=== PATIENT | male | born 1945 | race Caucasian/White ===

== ENCOUNTER 2019-07-17 15:01 | Emergency (ER) | payer OTHER ==
[~2019-07-17] VITALS: Ht 177.8 cm; Wt 110.2 kg
[~2019-07-17 15:01] MED LIST: ALBU90OI INH; ASPI81CH PO; ASPI81EC; ATEN50; ATEN50 PO; ATOR10; Artificial Tea1 EACH BOTHEYES; Atrovent Inha12.9 GM INH; DOXA2; ETOD400 PO; FINA5 PO; METF500C PO; NITR.6SL SL; PREG150 PO; Prednisone50 MG PO; ROFE12.5; ROPI1 PO; SIMV20; SIMV80 PO; SPIHYD PO; TAMS.4ER; TERA5 PO; TRAM50 PO; Triamcinolone A15 G4 TOP; VIOXX; Zithromax250 MG PO
[2019-07-17] MEDS ORDERED: ATOR40TA PO (16:12)
[2019-07-17] MEDS ORDERED: ATEN50 PO (16:12)
[2019-07-17] MEDS ORDERED: Isosorbide Mono30 MG PO (16:13)
[2019-07-17] MEDS ORDERED: Dyazide 37.5-21 EACH PO (16:13)
[2019-07-17] MEDS ORDERED: METF500 PO (16:14)
[2019-07-17] MEDS ORDERED: Omeprazole20 M1 PO (16:16)
[2019-07-17] MEDS ORDERED: TRAM50 PO (16:17)
[2019-07-17] MEDS ORDERED: Diclofenac Sodi50 MG PO (16:17)
[2019-07-17] MEDS ORDERED: TAMS.4ER PO (16:18)
[2019-07-17] MEDS ORDERED: Avodart0.5 MG PO (16:18)
[2019-07-17] MEDS ORDERED: Percocet 7.5-31 EACH PO (17:29)
[2019-07-17] MEDS ORDERED: Keflex500 MG PO (17:29)
== END 2019-07-17 17:57 | disposition home or self-care (01) ==
LOC: ER 15:01
DX: S62.310B Displaced fracture of base of second metacarpal bone, right hand, initial encounter for open fracture (principal); S62.241B Displaced fracture of shaft of first metacarpal bone, right hand, initial encounter for open fracture; S66.221A Laceration of extensor muscle, fascia and tendon of right thumb at wrist and hand level, initial encounter; I25.2 Old myocardial infarction; I10 Essential (primary) hypertension; E11.40 Type 2 diabetes mellitus with diabetic neuropathy, unspecified; M24.541 Contracture, right hand; F17.200 Nicotine dependence, unspecified, uncomplicated; Z95.5 Presence of coronary angioplasty implant and graft; Z88.8 Allergy status to other drugs, medicaments and biological substances; Z88.6 Allergy status to analgesic agent; Z88.5 Allergy status to narcotic agent; Z79.899 Other long term (current) drug therapy; Z79.84 Long term (current) use of oral hypoglycemic drugs; W31.2XXA Contact with powered woodworking and forming machines, initial encounter
CPT/HCPCS: 12034; 71046; 73120; 90471; 90714; 96365-59; 96375-59; 99283-25; J0690; J1170; J2405

== ENCOUNTER 2021-06-23 12:42 | Emergency (ER) | payer OTHER ==
[~2021-06-23] VITALS: Ht 175.3 cm; Wt 99.8 kg
[~2021-06-23 12:42] MED LIST changes: +ATOR40TA PO; +Avodart0.5 MG PO; +Diclofenac Sodi50 MG PO; +Dyazide 37.5-21 EACH PO; +Isosorbide Mono30 MG PO; +Keflex500 MG PO; +METF500 PO; +Omeprazole20 M1 PO; +Percocet 7.5-31 EACH PO; +TAMS.4ER PO
[2021-06-23 14:16] LABS: BASOPHILS ABSOLUTE AUTO 0.07 K/mm3 (0.00-0.23); BASOPHILS PERCENT AUTO 1 % (0-2); EOSINOPHILS PERCENT AUTO 1 % (0-6); Hematocrit 41.2 % (37.0-53.0); Hemoglobin 14.5 g/dL (13.5-17.5); IMMATURE GRAN ABSOLUTE AUTO 0.03 K/mm3 (0.00-0.10); IMMATURE GRAN PERCENT AUTO 0 % (0-1); LYMPHOCYTES PERCENT AUTO 29 % (21-46); MONOCYTES ABSOLUTE AUTO 0.79 K/mm3 (0.16-1.47); MONOCYTES PERCENT AUTO 8 % (4-13); Mean Corpuscular HGB 33.6 pg (26.0-34.0); Mean Corpuscular HGB Conc 35.2 g/dL (31.5-36.5); Mean Corpuscular Volume 96 fL (80-100); Mean Platelet Volume 9.9 fL (9.1-12.4); NEUTROPHILS ABSOLUTE AUTO 6.26 K/mm3 (1.96-9.15); NEUTROPHILS PERCENT AUTO 62 % (41-73); Platelet Count 268 K/mm3 (150-400); RDW Coefficient Variation 13.4 % (11.7-14.2); RDW Standard Deviation 47.8 fL (35.1-46.3); Red Blood Cell Count 4.31 M/mm3 (4.30-5.90); White Blood Cell Count 10.15 K/mm3 (4.00-11.30)
[2021-06-23 14:40] LABS: Alanine Aminotransfer (ALT/SGP 26 U/L (12-78); Albumin, Blood 3.5 g/dL (3.4-5.0); Alk Phos 102 U/L (50-136); Anion Gap 5 mmol/L (6-16); Aspartate Aminotrans (AST/SGOT 16 U/L (12-37); Bilirubin, Total 0.5 mg/dL (0.1-1.0); Blood Urea Nitrogen 21 mg/dL (8-24); Bun/Creatinine Ratio 17.4 (12.0-20.0); CO2, Blood 28 mmol/L (21-32); Calcium, Blood 8.6 mg/dL (8.5-10.1); Chloride, Blood 106 mmol/L (98-108); Creatinine, Blood 1.21 mg/dL (0.60-1.20); Globulin, Blood 3.6 g/dL (2.2-4.0); Glomerular Filtration Rate 58 (60-); Glucose, Blood 127 mg/dL (70-99); Potassium, Blood 4.3 mmol/L (3.5-5.5); Sodium, Blood 139 mmol/L (136-145); Total Protein, Blood 7.1 g/dL (6.4-8.2); Troponin I <0.015 ng/mL (0.000-0.040)
== END 2021-06-23 15:21 | disposition home or self-care (01) ==
LOC: ER 12:42
PROVIDERS: Emergency Medicine
DX: I20.8 Other forms of angina pectoris (principal); F17.200 Nicotine dependence, unspecified, uncomplicated; I10 Essential (primary) hypertension; E11.40 Type 2 diabetes mellitus with diabetic neuropathy, unspecified; Z95.5 Presence of coronary angioplasty implant and graft; Z88.8 Allergy status to other drugs, medicaments and biological substances; Z88.5 Allergy status to narcotic agent; Z79.899 Other long term (current) drug therapy; Z79.84 Long term (current) use of oral hypoglycemic drugs
CPT/HCPCS: 80053; 83880; 84484; 85025; 93005; 93010; 99285-25

== ENCOUNTER 2021-11-09 20:00 | Emergency (ER) | payer OTHER ==
[~2021-11-09] VITALS: Ht 175.3 cm; Wt 103.0 kg
[2021-11-09] MEDS ORDERED: PENVK500 PO (20:19)
[2021-11-09] MEDS ORDERED: Norco 5-325 Ta1 EACH PO (20:19)
== END 2021-11-09 20:42 | disposition home or self-care (01) ==
LOC: ER 20:00
DX: K08.89 Other specified disorders of teeth and supporting structures (principal); Z88.5 Allergy status to narcotic agent; Z88.8 Allergy status to other drugs, medicaments and biological substances; Z79.899 Other long term (current) drug therapy; Z79.84 Long term (current) use of oral hypoglycemic drugs; I25.2 Old myocardial infarction; I10 Essential (primary) hypertension; E11.40 Type 2 diabetes mellitus with diabetic neuropathy, unspecified; F17.200 Nicotine dependence, unspecified, uncomplicated
CPT/HCPCS: 99282; A9270

== ENCOUNTER 2022-06-11 14:09 | Emergency (ER) | payer OTHER ==
[~2022-06-11] VITALS: Ht 170.2 cm; Wt 113.4 kg
[~2022-06-11 14:09] MED LIST changes: +Norco 5-325 Ta1 EACH PO; +PENVK500 PO
[2022-06-11 14:47] LABS: BASOPHILS ABSOLUTE AUTO 0.06 K/mm3 (0.00-0.23); BASOPHILS PERCENT AUTO 1 % (0-2); EOSINOPHILS ABSOLUTE AUTO 0.34 K/mm3 (0.00-0.68); EOSINOPHILS PERCENT AUTO 4 % (0-6); Hematocrit 38.4 % (37.0-53.0); Hemoglobin 13.1 g/dL (13.5-17.5); IMMATURE GRAN ABSOLUTE AUTO 0.02 K/mm3 (0.00-0.10); IMMATURE GRAN PERCENT AUTO 0 % (0-1); LYMPHOCYTES ABSOLUTE AUTO 2.44 K/mm3 (0.84-5.20); LYMPHOCYTES PERCENT AUTO 30 % (21-46); MONOCYTES ABSOLUTE AUTO 0.75 K/mm3 (0.16-1.47); MONOCYTES PERCENT AUTO 9 % (4-13); Mean Corpuscular HGB 33.1 pg (26.0-34.0); Mean Corpuscular HGB Conc 34.1 g/dL (31.5-36.5); Mean Corpuscular Volume 97 fL (80-100); Mean Platelet Volume 9.4 fL (9.1-12.4); NEUTROPHILS ABSOLUTE AUTO 4.41 K/mm3 (1.96-9.15); NEUTROPHILS PERCENT AUTO 55 % (41-73); Platelet Count 196 K/mm3 (150-400); RDW Coefficient Variation 13.7 % (11.7-14.2); Red Blood Cell Count 3.96 M/mm3 (4.30-5.90); White Blood Cell Count 8.02 K/mm3 (4.00-11.30)
[2022-06-11 15:05] LABS: Albumin, Blood 3.2 g/dL (3.4-5.0); Bilirubin, Total 0.3 mg/dL (0.1-1.0); Bun/Creatinine Ratio 11.7 (12.0-20.0); Calcium, Blood 8.2 mg/dL (8.5-10.1); Creatinine, Blood 1.2 mg/dL (0.60-1.20); Globulin, Blood 3.2 g/dL (2.2-4.0); Potassium, Blood 3.8 mmol/L (3.5-5.5); Total Protein, Blood 6.4 g/dL (6.4-8.2)
[2022-06-11] MEDS ORDERED: Nitrostat0.4 MG SL (15:35)
== END 2022-06-11 16:11 | disposition home or self-care (01) ==
LOC: ER 14:09
PROVIDERS: Emergency Medicine
DX: I20.9 Angina pectoris, unspecified (principal); I25.2 Old myocardial infarction; I10 Essential (primary) hypertension; E11.9 Type 2 diabetes mellitus without complications; F17.210 Nicotine dependence, cigarettes, uncomplicated; Z88.8 Allergy status to other drugs, medicaments and biological substances; Z79.899 Other long term (current) drug therapy; Z79.84 Long term (current) use of oral hypoglycemic drugs; Z95.5 Presence of coronary angioplasty implant and graft; Z88.5 Allergy status to narcotic agent
CPT/HCPCS: 71045; 80053; 84484; 85025; 93005; 93010

== ENCOUNTER 2022-09-06 04:36 | Emergency (ER) | payer OTHER ==
[~2022-09-06] VITALS: Ht 177.8 cm; Wt 115.2 kg
[~2022-09-06 04:36] MED LIST changes: +Nitrostat0.4 MG SL
[2022-09-06 04:55] LABS: BASOPHILS ABSOLUTE AUTO 0.08 K/mm3 (0.00-0.23); BASOPHILS PERCENT AUTO 1 % (0-2); EOSINOPHILS PERCENT AUTO 4 % (0-6); Hematocrit 40.1 % (37.0-53.0); Hemoglobin 13.3 g/dL (13.5-17.5); IMMATURE GRAN ABSOLUTE AUTO 0.02 K/mm3 (0.00-0.10); IMMATURE GRAN PERCENT AUTO 0 % (0-1); LYMPHOCYTES ABSOLUTE AUTO 2.52 K/mm3 (0.84-5.20); LYMPHOCYTES PERCENT AUTO 31 % (21-46); MONOCYTES ABSOLUTE AUTO 0.88 K/mm3 (0.16-1.47); MONOCYTES PERCENT AUTO 11 % (4-13); Mean Corpuscular HGB 32.8 pg (26.0-34.0); Mean Corpuscular HGB Conc 33.2 g/dL (31.5-36.5); Mean Corpuscular Volume 99 fL (80-100); Mean Platelet Volume 9.8 fL (9.1-12.4); NEUTROPHILS ABSOLUTE AUTO 4.37 K/mm3 (1.96-9.15); NEUTROPHILS PERCENT AUTO 54 % (41-73); Platelet Count 208 K/mm3 (150-400); RDW Coefficient Variation 13.6 % (11.7-14.2); RDW Standard Deviation 49.3 fL (35.1-46.3); Red Blood Cell Count 4.06 M/mm3 (4.30-5.90); White Blood Cell Count 8.17 K/mm3 (4.00-11.30)
[2022-09-06] MEDS ORDERED: GABA300 PO (05:15)
[2022-09-06] MEDS ORDERED: ASPI81CH PO (05:15)
[2022-09-06] MEDS ORDERED: TERA5 PO (05:16)
[2022-09-06] MEDS ORDERED: LOSA50 PO (05:17)
[2022-09-06 05:18] LABS: Albumin, Blood 3.3 g/dL (3.4-5.0); Bilirubin, Total 0.3 mg/dL (0.1-1.0); Bun/Creatinine Ratio 17.8 (12.0-20.0); Calcium, Blood 8.6 mg/dL (8.5-10.1); Creatinine, Blood 1.01 mg/dL (0.60-1.20); Globulin, Blood 3.3 g/dL (2.2-4.0); Potassium, Blood 4.4 mmol/L (3.5-5.5); Thyroid Stimulating Hormone 1.25 uIU/mL (0.360-4.800); Total Protein, Blood 6.6 g/dL (6.4-8.2)
[2022-09-06 06:00] LABS: Influenza A, PCR NEGATIVE (NEGATIVE); Influenza B, PCR NEGATIVE (NEGATIVE); Resp Syncytial Virus, PCR NEGATIVE (NEGATIVE); SARS-Cov-2 (COVID-19) PCR, MMC NEGATIVE (NEGATIVE)
[2022-09-06] MEDS ORDERED: MECL25 PO (06:25)
== END 2022-09-06 06:46 | disposition home or self-care (01) ==
LOC: ER 04:36
PROVIDERS: Student in an Organized Health Care Education/Training Program
DX: H81.10 Benign paroxysmal vertigo, unspecified ear (principal); I25.2 Old myocardial infarction; I10 Essential (primary) hypertension; E11.40 Type 2 diabetes mellitus with diabetic neuropathy, unspecified; F17.210 Nicotine dependence, cigarettes, uncomplicated; I25.10 Atherosclerotic heart disease of native coronary artery without angina pectoris; Z88.5 Allergy status to narcotic agent; Z88.8 Allergy status to other drugs, medicaments and biological substances; Z79.899 Other long term (current) drug therapy
CPT/HCPCS: 0241U; 80053; 83735; 83880; 84443; 84484; 85025; 93005; 93010; A9270

== ENCOUNTER 2022-11-13 19:59 | Emergency (ER) | payer OTHER ==
[~2022-11-13] VITALS: Ht 175.3 cm; Wt 115.2 kg
[~2022-11-13 19:59] MED LIST changes: +GABA300 PO; +LOSA50 PO; +MECL25 PO
== END 2022-11-13 23:15 | disposition left against medical advice (07) ==
LOC: ER 19:59
DX: M79.605 Pain in left leg (principal); Z79.899 Other long term (current) drug therapy; Z79.82 Long term (current) use of aspirin; Z79.84 Long term (current) use of oral hypoglycemic drugs
CPT/HCPCS: 93971; 99282-25

== ENCOUNTER 2023-10-15 11:55 | Day surgery (SDC) | payer OTHER ==
[~2023-10-15] VITALS: Ht 175.3 cm; Wt 106.0 kg
[~2023-10-15 11:55] MED LIST changes: +ACET500 PO; +ARTIFICIAL TEAR15 M7; +ATROVENT HFA12.9 GM INH; +Aspir 8181 MG PO; +JARDIANCE10 MG PO; -LOSA50 PO; +LOSARTAN POTAS100 M1 PO; +METO50ER PO; +NITROGLYCERIN0.4 M3 SL; +OMEP20ER PO; -Omeprazole20 M1 PO; +ROPINIROLE HCL3 M2 PO; +Terazosin HCl10 MG PO; +VITAMIN D350 MC3 PO
--- NOTE | 2023-10-15 12:41 | NUR ---
10/15/23 1241 Mer Sher IN AT 1237 FEMI IN AT 1238 CALL LIGHT AT BEDSIDE
[2023-10-15 14:06] VITALS: BP 112/75
== END 2023-10-15 14:24 | disposition home or self-care (01) ==
LOC: ORSCSDS 11:55
PROVIDERS: Student in an Organized Health Care Education/Training Program
PROC: 08RJ3JZ Replacement of Right Lens with Synthetic Substitute, Percutaneous Approach (ICD-10-PCS; principal; 2023-10-15 13:45)
DX: E11.36 Type 2 diabetes mellitus with diabetic cataract (principal); H52.201 Unspecified astigmatism, right eye; H21.81 Floppy iris syndrome; I10 Essential (primary) hypertension; J44.9 Chronic obstructive pulmonary disease, unspecified; I25.2 Old myocardial infarction; Z79.82 Long term (current) use of aspirin; Z79.85 Long-term (current) use of injectable non-insulin antidiabetic drugs; Z79.899 Other long term (current) drug therapy; F17.200 Nicotine dependence, unspecified, uncomplicated
CPT/HCPCS: 82947; J2250; J3010; J7040; V2632

== ENCOUNTER 2023-10-29 11:07 | Day surgery (SDC) | payer OTHER ==
[~2023-10-29] VITALS: Ht 175.3 cm; Wt 107.0 kg
--- NOTE | 2023-10-29 12:16 | NUR ---
10/29/23 1216 Lidia Richard CALL LIGHT WITHIN REACH. FEMI IN LEFT EYE AT 1204
[2023-10-29 13:11] VITALS: BP 109/75
== END 2023-10-29 13:24 | disposition home or self-care (01) ==
LOC: ORSCSDS 11:07
PROVIDERS: Student in an Organized Health Care Education/Training Program
PROC: 08RK3JZ Replacement of Left Lens with Synthetic Substitute, Percutaneous Approach (ICD-10-PCS; principal; 2023-10-29 12:30)
DX: E11.36 Type 2 diabetes mellitus with diabetic cataract (principal); H25.12 Age-related nuclear cataract, left eye; Z96.1 Presence of intraocular lens; H21.81 Floppy iris syndrome; H52.202 Unspecified astigmatism, left eye; I10 Essential (primary) hypertension; J44.9 Chronic obstructive pulmonary disease, unspecified; F17.210 Nicotine dependence, cigarettes, uncomplicated; I25.10 Atherosclerotic heart disease of native coronary artery without angina pectoris; K21.9 Gastro-esophageal reflux disease without esophagitis; Z68.34 Body mass index [BMI] 34.0-34.9, adult; Z79.84 Long term (current) use of oral hypoglycemic drugs; Z79.899 Other long term (current) drug therapy
CPT/HCPCS: 82947; J2250; J3010; J7040; V2632

== ENCOUNTER 2023-12-15 08:55 | Emergency (ER) | payer OTHER ==
[~2023-12-15] VITALS: Ht 190.5 cm; Wt 98.0 kg
[2023-12-15 09:10] LABS: Calcium, Ionized (POC) 1.18 mmol/L (1.10-1.46); Chloride (POC) 109 mmol/L (98-108); Creatinine (POC) 1.1 mg/dL (0.8-1.3); Glucose (ISTAT POC) 190 mg/dL (70-99); Hemoglobin (POC) 15.6 g/dL (13.5-17.5); Potassium (POC) 4.4 mmol/L (3.5-5.5); Sodium (POC) 142 mmol/L (135-148); Total CO2 (POC) 23 mmol/L (21-32)
[2023-12-15] MEDS ORDERED: NiCARdipine HCL 25 MG in NS 250 ML IV SCH (09:10)
[2023-12-15] MEDS ORDERED: FentaNYL Citrate 50 MCG/ML 2 ML Injection IV ONE (09:10)
[2023-12-15] MEDS ORDERED: propofoL 100 ML IV SCH (09:10)
[2023-12-15] MEDS ORDERED: NS 1,000 ML IV ONE (09:15)
[2023-12-15 09:24] LABS: BASOPHILS ABSOLUTE AUTO 0.09 K/mm3 (0.00-0.23); BASOPHILS PERCENT AUTO 1 % (0-2); EOSINOPHILS ABSOLUTE AUTO 0.18 K/mm3 (0.00-0.68); EOSINOPHILS PERCENT AUTO 2 % (0-6); Hematocrit 45.3 % (37.0-53.0); IMMATURE GRAN ABSOLUTE AUTO 0.04 K/mm3 (0.00-0.10); IMMATURE GRAN PERCENT AUTO 0 % (0-1); LYMPHOCYTES ABSOLUTE AUTO 3.88 K/mm3 (0.84-5.20); LYMPHOCYTES PERCENT AUTO 32 % (21-46); MONOCYTES ABSOLUTE AUTO 0.77 K/mm3 (0.16-1.47); MONOCYTES PERCENT AUTO 6 % (4-13); Mean Corpuscular HGB 32.8 pg (26.0-34.0); Mean Corpuscular HGB Conc 33.1 g/dL (31.5-36.5); Mean Corpuscular Volume 99 fL (80-100); Mean Platelet Volume 9.9 fL (9.1-12.4); NEUTROPHILS ABSOLUTE AUTO 7.05 K/mm3 (1.96-9.15); NEUTROPHILS PERCENT AUTO 59 % (41-73); Platelet Count 225 K/mm3 (150-400); RDW Coefficient Variation 13.9 % (11.7-14.2); RDW Standard Deviation 50.7 fL (35.1-46.3); Red Blood Cell Count 4.58 M/mm3 (4.30-5.90); White Blood Cell Count 12.01 K/mm3 (4.00-11.30)
[2023-12-15] MEDS ORDERED: Labetalol HCL 5 MG/ML 4ML Injection (Single Dose) IV ONE (09:25)
[2023-12-15 09:37] LABS: International Normalized Ratio 0.96; Prothrombin Time Results 10.1 Sec (9.7-11.5)
[2023-12-15 09:40] LABS: Albumin, Blood 3.4 g/dL (3.4-5.0); Bilirubin, Total 0.4 mg/dL (0.1-1.0); Bun/Creatinine Ratio 18.2 (12.0-20.0); Calcium, Blood 8.6 mg/dL (8.5-10.1); Creatinine, Blood 1.1 mg/dL (0.60-1.20); Globulin, Blood 3.3 g/dL (2.2-4.0); Potassium, Blood 4.7 mmol/L (3.5-5.5); Total Protein, Blood 6.7 g/dL (6.4-8.2)
[2023-12-15] MEDS ORDERED: Sodium Chloride 3% 500 ML IV ONE (09:40)
[2023-12-15] MEDS ORDERED: Sodium Chloride 3% 250 ML IV ONE (09:45)
[2023-12-15 09:57] LABS: Base Excess Venous -4.5 mmol/L; Bicarbonate Venous 21.1 mmol/L (24.0-30.0); PCO2 Venous 38.4 mmHg (38-42); pH Blood Venous 7.35 (7.34-7.37)
[2023-12-15] MEDS ORDERED: MECL25 PO (10:27)
[2023-12-15 10:57] VITALS: BP 141/83
[2023-12-15] MEDS ORDERED: Rocuronium Bromide 10 MG/ML 5ML Injection IV ONE (17:30)
[2023-12-15] MEDS ORDERED: Propofol 10mg/ml 20 ml Vial (Procedural) IV ONE (17:30)
== END 2023-12-15 11:30 | disposition short-term general hospital (02) ==
LOC: ER 08:55
PROVIDERS: Emergency Medicine
DX: I61.9 Nontraumatic intracerebral hemorrhage, unspecified (principal); I10 Essential (primary) hypertension; E11.40 Type 2 diabetes mellitus with diabetic neuropathy, unspecified; I25.2 Old myocardial infarction; Z88.8 Allergy status to other drugs, medicaments and biological substances; Z88.5 Allergy status to narcotic agent; Z79.899 Other long term (current) drug therapy; Z79.84 Long term (current) use of oral hypoglycemic drugs; Z79.82 Long term (current) use of aspirin; Z87.891 Personal history of nicotine dependence
CPT/HCPCS: 31500; 51702; 70450; 71045; 80047; 80053; 82803; 85014; 85025; 85610; 85730; 93005; 93010; 94002; 96365-59; 96368; 96375-59; 99291-25; 99292; J2704; J3010; J7030